=== PATIENT | male | born 1950 | race Caucasian/White ===

== ENCOUNTER → 2016-11-30 | Outpatient (REF) | payer OTHER | END | disposition home or self-care (01) | LOC: M LAB REF 11:45 | DX: L57.0 Actinic keratosis (principal) ==

== ENCOUNTER → 2019-05-10 | Outpatient (CLI) | payer MEDICARE, OTHER ==
--- NOTE | 2019-05-14 09:50 | SLEEPCENT ---
DATE OF STUDY: 05/10/2019 ORDERED BY: Luis Alberto Costa Nocturnal polysomnography was performed for evaluation of sleep physiology in this patient with history of excessive somnolence and irregular breathing in sleep who has comorbidities of coronary artery disease and hypertension. 6 hours and 51 minutes of data were reviewed. There were 310.5 minutes of sleep identified. Sleep latency was short at 8 minutes. Rapid eye movement (REM) latency was normal at 111 minutes. Sleep architecture was fairly good with 3 REM cycles. Overall sleep efficiency was 77.4%. The patient's electrocardiogram showed a sinus rhythm with an average heart rate of 58 beats per minute. Electroencephalogram (EEG) showed fairly normal waveforms for awake and sleep stages. There were 57 respiratory events identified of 10 seconds in duration or greater for an apnea-hypopnea index of 11. The events were primarily obstructive, not exclusive to sleep stage nor body posture. Arousals from respiratory events occurred 3.3 times per hour and oxygen desaturations were seen into the 80s. Remaining measures of sleep physiology were normal. IMPRESSION: Obstructive sleep apnea syndrome (G47.33). Apnea-hypopnea index 11. RECOMMENDATION: The patient should be encouraged to return to the sleep disorder center for pressure therapy. In the interim, alcohol and sedative avoidance should be practiced and caution exercised during the operation of motor vehicles.
== END ==
LOC: M SLEEP 20:00
PROVIDERS: ATTEND Physician Assistant
DX: G47.33 Obstructive sleep apnea (adult) (pediatric) (principal)

== ENCOUNTER → 2019-05-31 | Outpatient (CLI) | payer MEDICARE, OTHER ==
--- NOTE | 2019-06-02 20:26 | SLEEPCENT ---
DATE OF PROCEDURE: 05/31/2019 ORDERED BY: Beto Costa PA-C Nocturnal polysomnography was performed for the titration of pressure therapy in this patient with obstructive sleep apnea syndrome. Apnea-hypopnea index of 11. For testing, a [employer] Simplus full-face mask of medium size was used, 4 cm of water pressure were applied to the circuit and the lights were extinguished. 7 hours and 8 minutes of data were reviewed. There were 369.5 minutes of sleep identified. Sleep latency was short at 22 minutes. REM latency was short at 78 minutes. Sleep architecture was good with three progressively lengthening REM episodes. Overall sleep efficiency was 87.1%. The electrocardiogram showed a sinus rhythm with an average heart rate of 60 beats per minute. EEG showed normal waveforms for awake and sleep. Persistence of respiratory events prompted an increase in continuous positive airway pressure (CPAP) pressure late in the study. An optimal pressure of +13 cm resulted in REM in the supine posture without respiratory event or oxygen desaturation. IMPRESSION: Obstructive sleep apnea syndrome (G47.33). RECOMMENDATIONS: Nightly use of pressure therapy 13 cm of water.
== END ==
LOC: M SLEEP 20:00
PROVIDERS: ATTEND Physician Assistant
DX: G47.33 Obstructive sleep apnea (adult) (pediatric) (principal)

== ENCOUNTER → 2024-06-25 | Outpatient (REF) | payer MEDICARE, OTHER | LOC: M LAB REF 21:45 | PROVIDERS: ATTEND Internal Medicine | DX: A87.9 Viral meningitis, unspecified (principal) ==